=== PATIENT | male | born 1970 | race Caucasian/White ===

== ENCOUNTER 2020-06-04 12:56 | Emergency (ER) | payer OTHER ==
[~2020-06-04] VITALS: Ht 182.9 cm; Wt 92.5 kg
[2020-06-04 13:04] VITALS: Ht 182.9 cm; Wt 92.5 kg
[2020-06-04 15:09] VITALS: BP 114/78
[2020-06-04] MEDS ORDERED: IBU600 M2 PO (16:34)
[2020-06-04] MEDS ORDERED: ROB750 PO (16:34)
== END 2020-06-04 16:47 | disposition home or self-care (01) ==
LOC: ED 12:56
DX: M62.838 Other muscle spasm (principal); J45.909 Unspecified asthma, uncomplicated; Z98.890 Other specified postprocedural states; Z88.0 Allergy status to penicillin